=== PATIENT | female | born 1960 | race Caucasian/White ===

== ENCOUNTER → 2024-12-04 09:52 | Outpatient (REF) | payer MEDICARE, SELFPAY | LOC: RAD 09:52 | PROVIDERS: ATTENDING PHYSICIAN Family Medicine | DX: R05.1 Acute cough (principal) | CPT/HCPCS: 71046 ==

== ENCOUNTER → 2025-06-13 09:38 | Outpatient (REF) | payer MEDICARE, SELFPAY | LOC: RAD 09:38 | PROVIDERS: ATTENDING PHYSICIAN Physician Assistant Medical | DX: M79.604 Pain in right leg (principal); M79.89 Other specified soft tissue disorders; M79.672 Pain in left foot | CPT/HCPCS: 73630; 93971 ==